=== PATIENT | male | born 1935 | race Caucasian/White ===

== ENCOUNTER 2017-08-02 08:43 | Emergency (ER) | payer MEDICARE, OTHER ==
[~2017-08-02] VITALS: Ht 167.6 cm; Wt 66.5 kg
[~2017-08-02 08:43] MED LIST: ASPI-664 PO; ATOR80TA75 PO; BENA5TAB2 PO; CARV3.1260 PO; FURO-110 PO; GABA300C16 PO; GLIP5TAB13 PO; METF1000 PO; TICA90TA PO
[2017-08-02 08:47] VITALS: Ht 167.6 cm; Wt 66.5 kg
[2017-08-02] MEDS ORDERED: ONDANSETRON 4 MG INJ IV STA (08:56)
[2017-08-02] MEDS ORDERED: morphine 2 MG INJ IV STA (08:56)
[2017-08-02] MEDS ORDERED: SOD CHLORIDE 0.9% 500 ML IV STA (08:56)
--- NOTE | 2017-08-02 09:46 | RADRPT ---
PROCEDURE: Ultrasound of the right lower extremity venous system. CLINICAL INDICATION: Right leg pain and swelling, deep venous thrombosis TECHNIQUE: Carmen scale with and without compression, color doppler, spectral doppler of the venous system of the right lower extremity was performed. Venous augmentation maneuvers were utilized. COMPARISON: No prior studies are available for comparison. FINDINGS: Common femoral vein: Patent. Femoral vein: Patent. Popliteal vein: Patent. Calf veins: Patent. No soft tissue abnormalities are identified. IMPRESSION: No evidence of a deep vein thrombosis within the right lower extremity. RPTAT: AADD .Chaparro Odell MD, MD Date Time Electronically viewed and signed by .Chaparro Odell MD, on 08/02/2017 09:46 .B/
[2017-08-02] MEDS ORDERED: ASPI81TA3 PO (09:59)
[2017-08-02] MEDS ORDERED: ATOR80TA75 PO (10:01)
[2017-08-02] MEDS ORDERED: TICA90TA PO (10:03)
[2017-08-02] MEDS ORDERED: BENA5TAB2 PO (10:03)
[2017-08-02] MEDS ORDERED: CARV6.25 PO (10:04)
[2017-08-02 10:07] LABS: BASOPHIL # 0.1 10^3/ul (0.0-0.1); BASOPHILS % 1.8 % (0.0-2.0); EOSINOPHILS # 0.4 10^3/ul (0.0-0.5); EOSINOPHILS % 6.3 % (0.0-7.0); HEMOGLOBIN 13.2 g/dl (14.0-18.0); LYMPHOCYTES # 1.5 10^3/ul (0.8-2.9); LYMPHOCYTES % 22.7 % (15.0-51.0); MEAN CORPUSCULAR HEMOGLOBIN 30.3 pg (29.0-33.0); MEAN CORPUSCULAR HGB CONC 33.8 g/dl (32.0-37.0); MEAN CORPUSCULAR VOLUME 89.7 fl (82.0-101.0); MEAN PLATELET VOLUME 10.3 fl (7.4-10.4); MONOCYTE # 0.7 10^3/ul (0.3-0.9); NEUTROPHIL # 3.9 10^3/ul (1.6-7.5); NEUTROPHILS % 57.9 % (39.0-77.0); PLATELET COUNT 189 10^3/UL (140-415); RED BLOOD COUNT 4.35 10^6/ul (4.70-6.10); RED CELL DISTRIBUTION WIDTH 15.7 % (11.5-14.5); WHITE BLOOD COUNT 6.7 10^3/ul (4.8-10.8)
[2017-08-02 10:24] LABS: INR 1.04; PROTIME 13.7 Sec (11.9-14.9); PT RATIO 1.1
[2017-08-02 10:25] LABS: PARTIAL THROMBOPLASTIN TIME 30.9 Sec (25.0-35.0)
[2017-08-02 10:28] LABS: ANION GAP 16 (8-16); BLOOD UREA NITROGEN 21 mg/dl (7-20); CALCIUM 9.2 mg/dl (8.4-10.2); CARBON DIOXIDE 24 mmol/L (21-31); CHLORIDE 105 mmol/L (97-110); CREATININE 0.97 mg/dl (0.61-1.24); GLUCOSE 160 mg/dl (70-220); POTASSIUM 3.6 mmol/L (3.5-5.1); SODIUM 141 mmol/L (135-144)
[2017-08-02 10:40] LABS: TROPONIN-I < 0.012 ng/ml (0.00-0.12)
[2017-08-02 10:40] LABS: ADD UMIC YES; UR ASCORBIC ACID NEGATIVE (NEGATIVE); UR BILIRUBIN (Dip) NEGATIVE (NEGATIVE); UR BLOOD (Dip) 1+ mg/dL (NEGATIVE); UR CLARITY CLEAR (CLEAR); UR COLOR YELLOW (YELLOW); UR GLUCOSE (Dip) NEGATIVE (NEGATIVE); UR KETONES (Dip) NEGATIVE (NEGATIVE); UR LEUKOCYTE ESTERASE (Dip) NEGATIVE Leu/ul (NEGATIVE); UR NITRITE (Dip) NEGATIVE (NEGATIVE); UR RBC 0 /HPF (0-5); UR SPECIFIC GRAVITY (Dip) 1.013 (1.003-1.030); UR TOTAL PROTEIN (Dip) NEGATIVE (NEGATIVE); UR UROBILINOGEN (Dip) NEGATIVE (NEGATIVE)
--- NOTE | 2017-08-02 10:40 | RADRPT ---
PROCEDURE: Right knee x-ray CLINICAL INDICATION: Syncope, fall, trauma TECHNIQUE: AP, lateral, and oblique views of the knee were obtained. COMPARISON: None FINDINGS: No acute fracture or dislocation is seen. There is normal mineralization. There is moderate narrowing of the medial compartment. There is no joint effusion. There is no significant soft tissue swelling. IMPRESSION: No evidence of an acute fracture. Moderate narrowing of the medial compartment. RPTAT: EE Physician Felicia Date Time Electronically viewed and signed by Physician Felicia on 08/02/2017 10:39 RA/
--- NOTE | 2017-08-02 10:40 | RADRPT ---
PROCEDURE: XR Chest. CLINICAL INDICATION: Syncope TECHNIQUE: An AP view of the chest was obtained. COMPARISON: CR CHEST 08/03/2016; CR CHEST 07/28/2016; CR CHEST 11/28/2015 FINDINGS: There is prominence of the interstitial markings. There are coarse reticular interstitial markings at the lung bases. No pleural effusion or pneumothorax is seen. The cardiomediastinal silhouette is within normal limits for size. Calcifications are seen within the aortic arch. The osseous structu res demonstrate senescent changes. IMPRESSION: 1. 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 No significant interval change. 2. Aortic atherosclerosis. RPTAT: HH .Carmela Mendiola MD, MD Date Time Electronically viewed and signed by .Carmela Mendiola MD, on 08/02/2017 10:40 .G/
[2017-08-02] MEDS ORDERED: IOHEXOL 100 ML ONE (10:48)
[2017-08-02] MEDS ORDERED: SOD CHLORIDE 0.9% 100 ML ONE (10:48)
[2017-08-02] MEDS ORDERED: IOHEXOL 350MG/ML 50 ML BTL ONE (10:53)
--- NOTE | 2017-08-02 11:10 | RADRPT ---
PROCEDURE: CT Brain without contrast. CLINICAL INDICATION: Syncope. TECHNIQUE: A CT of the brain was performed on multidetector high-resolution CT scanner utilizing a xial sections from the skull base through the vertex without contrast. The scan was reviewed in sof t tissue brain and high frequency resolution bone algorithm windows. Images were reviewed on a high -resolution PACS workstation. One or more the following does reduction techniques were utilized: Aut omated exposure control, adjustment of the mA/ or kV according to patient's size, or use of iterativ e reconstruction technique. The exam CTDI = 42.69 mGy and the DLP = 720.23 mGy-cm. DICOM images are available. COMPARISON: Brain CT 11/28/2015. FINDINGS: The ventricles and sulci are mildly to moderately prominent indicative of volume loss. There is no intracranial hemorrhage, mass effect or midline shift. No abnormal intra-axial or extra-axial fluid collections are seen. The santana/white matter differentiation is preserved. There are mild scattered foci of hypoattenuation in the white matter, which are nonspecific in etiol ogy but likely reflect chronic small vessel ischemic changes. There are mild intracranial vascular calcifications consistent with atherosclerosis. The visualized paranasal sinuses demonstrate mild sc attered mucosal thickening. The mastoid air cells are essentially clear. There is thinning of right lens indicative of prior lens replacement. IMPRESSION: 1. No acute intracranial hemorrhage, transcortical infarction or mass effect. 2. Mild intracranial atherosclerosis and chronic small vessel ischemic changes. 3. Mild to moderate generalized cerebral volume loss. RPTAT: HH .Lissy Anthony MD, MD Date Time Electronically viewed and signed by .Lissy Anthony MD, MD on 08/02/2017 11:10 .N/
--- NOTE | 2017-08-02 11:28 | RADRPT ---
PROCEDURE: CT scan facial bones CLINICAL INDICATION: Trauma. Facial injury. Pain. TECHNIQUE: CT scan of the face was performed on the a high-resolution multidetector CT scanner wit h multiple contiguous axial images obtained through the face. Coronal and sagittal reformatted imag es were obtained from the axial source images. One or more the following does reduction techniques w ere utilized: Automated exposure control, adjustment of the mA/ or kV according to patient's size, o r use of iterative reconstruction technique. Exam CTDI = 29.56 mGy and the DLP = 595.85 mGy-cm. DICOM images are available. COMPARISON: None available. FINDINGS: No acute fracture or dislocation is seen. No significant soft tissue swelling is noted. There is t hinning of right lens indicative of prior lens replacement. The orbital globes are otherwise unremar kable. Leftward nasal septal deviation is noted. Paranasal sinuses demonstrate mild scattered mucos al thickening. Multiple missing teeth are noted. IMPRESSION: 1. No acute facial fracture or dislocation. 2. Leftward nasal septal deviation. RPTAT: HH .Lissy Anthony MD, MD Date Time Electronically viewed and signed by .Lissy Anthony MD, MD on 08/02/2017 11:28 .N/
--- NOTE | 2017-08-02 11:28 | RADRPT ---
PROCEDURE: CTA Chest and pulmonary angiogram. CLINICAL INDICATION: Chest pain and shortness of breath. TECHNIQUE: CT scan of the chest and CT pulmonary angiogram was performed on a multidetector high-r esolution CT scanner. High-resolution thin slice coronal and sagittal imaging was obtained from the axial source images. 3-D volumetric rendered post processing was not performed. The patient was ex amined following the uncomplicated intravenous administration of 110 cc of of 03/29/1949. The images were reviewed on a PACS workstation. The total exam CTDI equals 45 mGy, and the total exam DLP equa ls 600.5 mGy-cm. One or more of the following dose reduction techniques were used: Automated exposure control. Adjustment of the mA and/or kV according to patient size. Use of iterative reconstruction technique. DICOM images are available. COMPARISON: No priors for comparison FINDINGS: CT chest: The trachea is midline. The thyroid gland is unremarkable. No significant axillary lymphadenopathy. There is no significant mediastinal or hilar lymphadenopathy. The aorta demonstrates mild atherosclerotic calcifications. No evidence of aneurysmal dilatation or dissection. Pulmonary arterial trunk is normal size. There is no abnormal filling defects in the gio n pulmonary artery and its segmental branches. The heart size is enlarged. There is no significant p ericardial effusion. The lungs are clear. No focal air space disease/consolidation. Pleural effusions. Airways are patent . There is bilateral lower lobe reticular peripheral interstitial opacities. There is mild bilateral bronchiectasis. The visualized upper abdominal organs appears to within normal limits. The visualized osseous structures appear to be within normal limits. IMPRESSION: 1. No evidence of acute pulmonary emboli. No evidence of aortic aneurysm or dissection. 2. Cardiomegaly. 3. No focal air space disease/consolidation. No pleural effusions. 4. Bilateral bronchiectasis and bilateral lower lobe reticular peripheral interstitial opacities sug gestive of mild chronic interstitial lung disease. RPTAT: AAPP Physician Pam Date Time Electronically viewed and signed by Physician Pam on 08/02/2017 11:28 CINDI/
--- NOTE | 2017-08-02 11:34 | RADRPT ---
PROCEDURE: CT cervical spine without contrast CLINICAL INDICATION: Trauma. Neck pain. TECHNIQUE: CT scan of the cervical spine was performed on a [facility] No IV contrast was administered. Coronal and sagittal reformatted images were obtained from th e axial source images. Images were reviewed on a high-resolution PACS workstation. One or more the f ollowing does reduction techniques were utilized: Automated exposure control, adjustment of the mA/ or kV according to patient's size, or use of iterative reconstruction technique. Exam CTDI = 19th mG y and the DLP = 369.05 mGy-cm. DICOM images are available. COMPARISON: None available. FINDINGS: There is straightening of the alignment of the cervical spine with loss of the normal cervical lordo sis. Alignment remains intact. No acute fracture or dislocation is seen. The vertebral body heigh ts are preserved. No mass, hematoma, or other soft tissue abnormality is seen. Calcification of the ligamentum nuchae is noted at C5-C6 level. There are multilevel mild to moderate degenerative changes of the cervical spine, manifested by oste ophytosis and disc height narrowing, most prominent at C5-C6. Uncovertebral osteophytes and facet ar thropathy result in multilevel foraminal stenosis: at C3-C4 moderate to severe on the right and mode rate on the left, at C4-C5 moderate to severe bilaterally, at C5-C6 moderate to severe on the right and severe on the left, and at C6-C7 mild bilaterally. Posterior disc osteophyte complexes contribut e to moderate spinal canal stenosis at C5-C6 and mild spinal canal narrowing at C3-C4, C4-C5 and C6- C7. IMPRESSION: 1. Straightening of normal cervical lordosis. 2. No acute fracture or traumatic subluxation. 3. Multilevel mild to moderate degenerative changes of the cervical spine, most prominent at C5-C6. 4. Posterior disc osteophyte complexes contribute to moderate spinal canal stenosis at C5-C6 and mi ld spinal canal narrowing at C3-C4, C4-C5 and C6-C7. 5. Multilevel moderate to severe foraminal stenosis as outlined in details in findings. RPTAT: HH .Farmil Anthony MD, MD Date Time Electronically viewed and signed by .Lissy Anthony MD, MD on 08/02/2017 11:34 .N/
[2017-08-02] MEDS ORDERED: ACET500C5 PO (13:16)
--- NOTE | 2017-08-02 13:32 | ERD ---
ER Documentation Chief Complaint Chief Complaint right knee pain and nasal pain s/p fall yesterday, on brilinta, HPI This is an 82-year-old gentleman who presents to the emergency room complaining of knee pain, facial pain and chest wall pain status post fall yesterday. Family reports that the patient was walking, he occasionally is unsteady on his feet. He states that his knees were wobbling and he collapsed to the ground. There is no prodrome of headache or chest pain or shortness of breath. Status post a fall the patient did fall onto his face. He also hit his chest. He is describing facial pain that is 6 out of 10 and throbbing with lip abrasions and contusions. He also describes anterior chest pain that is slightly pleuritic and worse with movement. He also describes right knee pain that is slightly worse with movement. No fevers chills or cough. No neck pain. ROS All systems reviewed and are negative except as per history of present illness. Medications Home Meds Active Scripts Acetaminophen* (Tylophen*) 500 Mg Capsule, 2 CAP PO Q8H Y for PAIN AND OR ELEVATED TEMP, #20 CAP Prov:JAQUI MONTILLA MD 08/02/17 Furosemide* (Lasix*) 20 Mg Tablet, 20 MG PO BID, #90 TAB 3 Refills Prov:RUBÉN ANTONIO 08/04/16 Reported Medications Carvedilol* (Coreg*) 6.25 Mg Tablet, 6.25 MG PO BID, #60 TAB 08/02/17 Ticagrelor* (Brilinta*) 90 Mg Tablet, 90 MG PO Q12, TAB 08/02/17 Benazepril Hcl* (Benazepril Hcl*) 5 Mg Tablet, 2.5 MG PO DAILY, #30 TAB 08/02/17 Atorvastatin* (Atorvastatin*) 80 Mg Tablet, 80 MG PO QHS, #30 TAB 08/02/17 Aspirin* (Aspirin* Chew) 81 Mg Tab.chew, 81 MG PO DAILY, TAB.CHEW 08/02/17 Gabapentin* (Gabapentin*) 300 Mg Capsule, 300 MG PO BID, #270 11/28/15 Metformin Hcl* (Metformin Hcl*) 1,000 Mg Tablet, 1000 MG PO BID, #180 11/28/15 Discontinued Reported Medications Glipizide* (Glipizide*) 5 Mg Tablet, 5 MG PO DAILY, #90 11/28/15 Discontinued Scripts Atorvastatin* (Atorvastatin*) 80 Mg Tablet, 80 MG PO DAILY@21 for 30 Days, TAB 1 Refill Prov:ZEENAT RESENDIZ MD 07/30/16 Ticagrelor* (Brilinta*) 90 Mg Tablet, 90 MG PO BID for 30 Days, TAB 9 Refills Prov:ZEENAT RESENDIZ MD 07/30/16 Carvedilol* (Carvedilol*) 3.125 Mg Tablet, 3.125 MG PO BID for 30 Days, TAB 1 Refill Prov:ZEENAT RESENDIZ MD 07/30/16 Benazepril Hcl* (Benazepril Hcl*) 5 Mg Tablet, 2.5 MG PO DAILY for 30 Days, TAB 1 Refill Prov:ZEENAT RESENDIZ MD 07/30/16 Aspirin* (Aspirin* EC) 81 Mg Tablet.dr, 81 MG PO DAILY for 90 Days, 3 Refills Prov:ZEENAT RESENDIZ MD 07/30/16 Allergies Allergies: Coded Allergies: No Known Allergy (Unverified , 08/03/16) PMhx/Soc History of Surgery: No Anesthesia Reaction: No Hx Neurological Disorder: Yes (neuropathy) Hx Respiratory Disorders: Yes (chf) Hx Cardiac Disorders: Yes (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, HTN, CAD, DMii) Hx Psychiatric Problems: No Hx Miscellaneous Medical Probl: No Hx Alcohol Use: No Hx Substance Use: No Hx Tobacco Use: No Smoking Status: Former smoker FmHx Family History: No diabetes Physical Exam Vitals Vital Signs Date Time Temp Pulse Resp B/P Pulse Ox O2 Delivery O2 Flow Rate FiO2 08/02/17 08:47 97.9 68 18 117/92 96 Physical Exam Airway is intact Bilateral breath sounds Strong distal pulses No obvious deficits General: Well developed, well nourished, no acute distress Head: Normocephalic, atraumatic Eyes: Pupils equally reactive, EOM intact ENT: Moist mucous membranes, mild contusions to the upper and lower lips without evidence of dental injury Neck: Supple, no lymphadenopathy, No midline tenderness, deformities, step-offs to the cervical spine, full active and passive range of motion without midline pain. Respiratory: Lungs clear bilaterally, no distress, no chest wall tenderness, no crepitus Cardiovascular: RRR, no murmurs, rubs, or gallops Abdominal: Soft, non-tender, non-distended, no peritoneal signs, pelvis is stable : Deferred MSK: Mild right knee contusion with full active and passive range of motion without ligamentous or bony abnormality. No edema, no unilateral swelling, 5/5 strength, no midline tenderness deformities or step-offs to the thoracolumbar spine Neurologic: Alert and oriented, moving all extremities, normal speech, no focal weakness, no cerebellar signs Skin: No ecchymoses or bruising to the chest or abdomen Psych: Normal mood Result Diagram: 08/02/17 0930 08/02/17 0930 Results 24 hrs Laboratory Tests Test 08/02/17 09:30 08/02/17 10:17 White Blood Count 6.710^3/ul Red Blood Count 4.3510^6/ul Hemoglobin 13.2g/dl Hematocrit 39.0% Mean Corpuscular Volume 89.7fl Mean Corpuscular Hemoglobin 30.3pg Mean Corpuscular Hemoglobin Concent 33.8g/dl Red Cell Distribution Width 15.7% Platelet Count 51412^3/UL Mean Platelet Volume 10.3fl Neutrophils % 57.9% Lymphocytes % 22.7% Monocytes % 11.0% Eosinophils % 6.3% Basophils % 1.8% Nucleated Red Blood Cells % 0.0/100WBC Neutrophils # 3.910^3/ul Lymphocytes # 1.510^3/ul Monocytes # 0.710^3/ul Eosinophils # 0.410^3/ul Basophils # 0.110^3/ul Nucleated Red Blood Cells # 0.010^3/ul Prothrombin Time 13.7Sec Prothrombin Time Ratio 1.1 INR International Normalized Ratio 1.04 Activated Partial Thromboplast Time 30.9Sec Sodium Level 141mmol/L Potassium Level 3.6mmol/L Chloride Level 105mmol/L Carbon Dioxide Level 24mmol/L Anion Gap 16 Blood Urea Nitrogen 21mg/dl Creatinine 0.97mg/dl Glucose Level 160mg/dl Calcium Level 9.2mg/dl Troponin I < 0.012ng/ml Urine Color YELLOW Urine Clarity CLEAR Urine pH 5.0 Urine Specific [place] 1.013 Urine Ketones NEGATIVEmg/dL Urine Nitrite NEGATIVEmg/dL Urine Bilirubin NEGATIVEmg/dL Urine Urobilinogen NEGATIVEmg/dL Urine Leukocyte Esterase NEGATIVELeu/ul Urine Microscopic RBC 0/HPF Urine Microscopic WBC 1/HPF Urine Hemoglobin 1+mg/dL Urine Glucose NEGATIVEmg/dL Urine Total Protein NEGATIVEmg/dl Current Medications Medications (Trade) Dose Ordered Sig/Anna Route PRN Reason Start Time Stop Time Status Last Admin Dose Admin Sodium Chloride (NS) 500 ml @ 500 mls/hr Q1H STAT IV 08/02/17 08:56 08/02/17 09:55 DC 08/02/17 10:46 Morphine Sulfate (morphine) 2 mg ONCE STAT IV 08/02/17 08:56 08/02/17 08:59 DC Ondansetron HCl (Zofran Inj) 4 mg ONCE STAT IV 08/02/17 08:56 08/02/17 08:59 DC 08/02/17 10:46 IV Flush 10 ml 10 ml STK-MED ONCE .ROUTE 08/02/17 10:48 08/02/17 10:49 DC 08/02/17 11:21 Sodium Chloride 100 ml @ ud STK-MED ONCE .ROUTE 08/02/17 10:48 08/02/17 10:49 DC 08/02/17 11:21 Iohexol (Omnipaque) 100 ml @ ud STK-MED ONCE .ROUTE 08/02/17 10:48 08/02/17 10:49 DC 08/02/17 11:21 Iohexol (Omnipaque 350mg/ ml) 50 ml STK-MED ONCE .ROUTE 08/02/17 10:53 08/02/17 10:54 DC 08/02/17 11:21 Procedures/MDM EKG, MONITORS, & DIAGNOSTIC IMAGING: EKG: I reviewed and interpreted a 12-lead EKG. Rhythm: Normal sinus rhythm Ectopy: None Intervals: No abnormalities ST segments: No elevations or depressions T waves: No contiguous inversions Chest x-ray: I reviewed and interpreted a 1 view of the chest Mediastinum: No enlargement Cardiac silhouette: No cardiomegaly Airspace: Clear lung massey bilaterally without evidence of pneumothorax Bones: No evidence of fracture X-ray right knee: I reviewed and interpreted multiple views of the x-ray Bones: No evidence of acute fracture dislocation or subluxation Soft tissue: No evidence of foreign body CT brain: No evidence of acute intracranial process per radiologist CT cervical spine: No evidence of acute fracture dislocation or subluxation per radiologist Lower extremity duplex: No evidence of DVT CTA chest IMPRESSION: 1. No evidence of acute pulmonary emboli. No evidence of aortic aneurysm or dissection. 2. Cardiomegaly. 3. No focal air space disease/consolidation. No pleural effusions. 4. Bilateral bronchiectasis and bilateral lower lobe reticular peripheral interstitial opacities suggestive of mild chronic interstitial lung disease. RPTAT: AAPP LAB INTERPRETATION: No anemia, negative troponin MEDICAL DECISION MAKING: The patient presents with what appears to be a mechanical trip and fall though he states his legs gave out. He did not lose consciousness. He has evidence of facial trauma. This occurred yesterday. The patient will benefit from CT imaging of the head, facial bones, cervical spine. He also has evidence of a right knee contusion. He is describing chest pain that I believe is most consistent with chest wall contusion. He clearly describes the pain after the fall not before the fall. He has reproducible symptoms. The patient was noted to have some small swelling around the right ankle. I cannot rule out DVT and pulmonary embolism. CTPA indicated because of this. ER COURSE: Patient's laboratory testing and diagnostic imaging are otherwise unrevealing. I did have a prolonged conversation with the patient and family members and recommended inpatient hospitalization. However the family feels that they can appropriately manage the patient at home and this is something that has occurred in the past. I discussed that the chest pain is most likely musculoskeletal but cannot really ACS. They feel comfortable that this occurred after the fall and it is reproducible. I believe this is reasonable. The family states that they are able to care for the patient's activities of daily living. The patient is eager to go home. At this point I feel discharge would be appropriate. His head injury precautions discussed with the patient. Return precautions discussed with the family. I kept the patient and/or family informed of laboratory and diagnostic imaging results throughout the emergency room course. DISPOSITION PLAN: We discussed follow up with the patient's primary care doctor within 24 to 48 hours as needed. We also discussed return to the emergency room for worsening symptoms or worsening condition. Outpatient referral: [None required] Discharge Medications: Tylenol Departure Diagnosis: Primary Impression: Contusion of face Encounter type: initial encounter Qualified Code: S00.83XA - Contusion of face, initial encounter Additional Impressions: Fall from ground level Chest wall contusion Encounter type: initial encounter Laterality: unspecified laterality Qualified Code: S20.219A - Contusion of chest wall, unspecified laterality, initial encounter Condition: Stable Patient Instructions: Chest Wall Contusion, Facial Contusion, No Wakeup Referrals: [facility] Usted se julian hecho un examen mdico de control que le indica que no est en nabor condicin que requiera tratamiento urgente en el Departamento de Emergencia. Un estudio ms profundo y el tratamiento de cintron condicin pueden esperar sin ningn riesgo hasta que usted sea atendida/o en el consultorio de cintron mdico o nabor cl celeste. Es responsabilidad suya arreglar nabor cheri para el seguimiento del betty. MANEJO DE CONDICIONES NO URGENTES EN EL FUTURO 1) Si usted tiene un mdico de atencin primaria: Usted debera llamar a cintron mdico de atencin primaria antes de venir al departamento de emergencia. Despus de las horas de consultorio, cintron doctor o cintron asociado/a est disponible por telfono. El mdico o enfermero de talib en el servicio telefnico puede asesorarle por dudley medio para atender el problema, o betty contrario se puede programar nabor cheri. 2) Si usted no tiene un mdico de atencin primaria: Llame al mdico o clnica de referencia que aparece abajo lucio las horas de consultorio para hacer nabor cheri para que le vean. CLINICAS: [facility] [phone] [facility] [phone] [facility] [phone] [facility] [phone] [place] [phone] [facility] [phone] [facility]. [facility] () Skyler se julian hecho un examen mdico de control que le indica que no est en nabor condicin que requiera tratamiento urgente en el Departamento de Emergencia. Un estudio ms profundo y el tratamiento de cintron condicin pueden esperar sin ningn riesgo hasta que usted sea atendida/o en el consultorio de cintron mdico o nabor cl celeste. Es responsabilidad suya arreglar nabor cheri para el seguimiento del betty. MANEJO DE CONDICIONES NO URGENTES EN EL FUTURO 1) Si usted tiene un mdico de atencin primaria: Skyler debera llamar a cintron mdico de atencin primaria antes de venir al departamento de emergencia. Despus de las horas de consultorio, cintron doctor o cintron asociado/a est disponible por telfono. El mdico o enfermero de talib en el servicio telefnico puede asesorarle por dudley medio para atender el problema, o betty contrario se puede programar nabor cheri. 2) Si usted no tiene un mdico de atencin primaria: Llame al mdico o condado institucions de referencia que aparece abajo lucio las horas de consultorio para hacer nabor cheri para que le vean. SI USTED NO PUEDE PAGAR PARA SIRISHA UN MEDICO puede ir a: [facility] [phone] [place] [address] [facility] [address] [place] [address] [facility] [address] [place] [address] [address] [facility] [address] [place] [address] Additional Instructions: Llame al doctor nombrado abajo (Referral Sources) MAANA y nany nabor CHERI PARA DENTRO DE NABOR SEMANA. Dgale a la secretaria que nosotros le instruimos hacer esta cheri.Avise o llame si cintron condicin se empeora antes de la cheri. JAQUI MONTILLA MD Aug 02, 2017 13:32
[2017-08-02 14:45] VITALS: BP 164/72; PULSE 65; RESP 17; TEMP 98.2
== END 2017-08-02 14:46 | disposition home or self-care (01) ==
LOC: E/R 08:43
DX: S00.83XA Contusion of other part of head, initial encounter (principal); S20.219A Contusion of unspecified front wall of thorax, initial encounter; I50.9 Heart failure, unspecified; I10 Essential (primary) hypertension; I25.10 Atherosclerotic heart disease of native coronary artery without angina pectoris; W18.39XA Other fall on same level, initial encounter; Y92.9 Unspecified place or not applicable; Z87.891 Personal history of nicotine dependence; Z98.61 Coronary angioplasty status; Z79.84 Long term (current) use of oral hypoglycemic drugs; Z79.82 Long term (current) use of aspirin
CPT/HCPCS: 36415; 70450; 70486; 71010; 71275; 72125; 73562; 80048; 81001; 84484; 85025; 85610; 85730; 93005; 93971; 96374; 99285; J2405; J7040; Q9967; J2270

== ENCOUNTER 2018-11-04 11:10 | Emergency (ER) | payer MEDICARE, OTHER ==
[~2018-11-04] VITALS: Ht 167.6 cm; Wt 78.0 kg
[~2018-11-04 11:10] MED LIST changes: +ACET500C5 PO; -ASPI-664 PO; +ASPI-903 PO; +ATOR-2 PO; -ATOR80TA75 PO; -BENA5TAB2 PO; +BENA5TAB33 PO; -CARV3.1260 PO; +CARV6.25 PO; -GLIP5TAB13 PO; -METF1000 PO; +METF100010 PO
[2018-11-04 11:12] VITALS: BP 186/86; PULSE 66; RESP 20; Ht 167.6 cm; Wt 78.0 kg
--- NOTE | 2018-11-04 13:34 | ERD ---
ER Documentation Chief Complaint Chief Complaint lower back and left shoulder pain after a trip and fall HPI The patient is a 83-year-old male, presenting to the ER because of lower back pa in and left shoulder pain after he had a mechanical fall yesterday. He denies head trauma, denies headache, neck pain, chest pain, dyspnea, abdominal pain, vomiting. He does not smoke nor drink Past medical history: Hypertension, dyslipidemia, diabetes mellitus, history of CHF, CAD Past surgical history: Stent PCI ROS All systems reviewed and are negative except as per history of present illness. Medications Home Meds Active Scripts Acetaminophen* (Tylenol*) 325 Mg Tablet, 2 TAB PO Q6 PRN for PAIN AND OR ELEVATED TEMP, #20 TAB Prov:MARINA EPPS MD 11/04/18 Reported Medications Cyanocobalamin (Vitamin B-12) (Vitamin B-12) 1,000 Mcg Tab.subl, 1000 MCG SL DAILY 11/04/18 Atorvastatin* (Atorvastatin*) 80 Mg Tablet, 80 MG PO QHS, #30 TAB 11/04/18 Metformin Hcl* (Metformin Hcl*) 1,000 Mg Tablet, 1000 MG PO WITH BREAKFAST DINNE, #60 TAB 11/04/18 Carvedilol* (Carvedilol*) 6.25 Mg Tablet, 6.25 MG PO BID, #60 TAB 11/04/18 Gabapentin* (Gabapentin*) 300 Mg Capsule, 300 MG PO BID, #60 CAP 11/04/18 Benazepril Hcl* (Benazepril Hcl*) 5 Mg Tablet, 5 MG PO DAILY, #30 TAB 11/04/18 Aspirin* (Aspirin* EC) 81 Mg Tablet.dr, 81 MG PO DAILY, TAB 11/04/18 Discontinued Reported Medications Carvedilol* (Coreg*) 6.25 Mg Tablet, 6.25 MG PO BID, #60 TAB 08/02/17 Ticagrelor* (Brilinta*) 90 Mg Tablet, 90 MG PO Q12, TAB 08/02/17 Benazepril Hcl* (Benazepril Hcl*) 5 Mg Tablet, 2.5 MG PO DAILY, #30 TAB 08/02/17 Atorvastatin* (Atorvastatin*) 80 Mg Tablet, 80 MG PO QHS, #30 TAB 08/02/17 Aspirin* (Aspirin* Chew) 81 Mg Tab.chew, 81 MG PO DAILY, TAB.CHEW 08/02/17 Gabapentin* (Gabapentin*) 300 Mg Capsule, 300 MG PO BID, #270 11/28/15 Metformin Hcl* (Metformin Hcl*) 1,000 Mg Tablet, 1000 MG PO BID, #180 11/28/15 Discontinued Scripts Acetaminophen* (Tylophen*) 500 Mg Capsule, 2 CAP PO Q8H PRN for PAIN AND OR ELEVATED TEMP, #20 CAP Prov:JAQUI MONTILLA MD 08/02/17 Furosemide* (Lasix*) 20 Mg Tablet, 20 MG PO BID, #90 TAB 3 Refills Prov:RUBÉN ANTONIO 08/04/16 Allergies Allergies: Coded Allergies: No Known Allergy (Unverified , 11/04/18) PMhx/Soc History of Surgery: No Anesthesia Reaction: No Hx Neurological Disorder: Yes (neuropathy) Hx Respiratory Disorders: Yes (chf) Hx Cardiac Disorders: Yes (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, HTN, CAD, DMii) Hx Psychiatric Problems: No Hx Miscellaneous Medical Probl: No Hx Alcohol Use: No Hx Substance Use: No Hx Tobacco Use: No Physical Exam Vitals Vital Signs Date Temp Pulse Resp B/P (MAP) Pulse Ox O2 O2 Flow FiO2 Time Delivery Rate 11/04/18 97.6 66 20 186/86 98 11:12 (119) Physical Exam Const: No acute distress. Head: Atraumatic. Eyes: Normal Conjunctiva. ENT: Normal External Ears, Nose and Mouth. Neck: Full range of motion. No meningismus. Resp: Clear to auscultation bilaterally. Cardio: Regular rate and rhythm. Abd: Soft, non distended, normal bowel sounds, non tender. Skin: No petechiae or rashes. Back: No midline or flank tenderness. Ext: Left shoulder with vague tenderness, full range of motion, no erythema/crepitus Neur: Awake and alert. No focal deficit Psych: Normal Mood and Affect. Results 24 hrs Current Medications Medications Dose Sig/Anna Start Time Status Last (Trade) Ordered Route PRN Stop Time Admin Dose Reason Admin 650 mg ONCE ONCE 11/04/18 DC 11/04/18 Acetaminophen PO 15:30 15:38 (Tylenol 11/04/18 15:31 Tab) Procedures/[place] [id number] Radiology Main Line: [phone] DIAGNOSTIC IMAGING REPORT Patient: TOBI AC : 1935 Age: 83 Sex: M MR #: [id number] DOS: 11/04/18 1340 Ordering MD: MARINA EPPS MD Location: E/R Room/Bed: PROCEDURE: XR Lumbar Spine. CLINICAL INDICATION: pain TECHNIQUE: AP, lateral and cone-down lateral view of the lumbar spine were obtained. COMPARISON: CT 08/02/2017 FINDINGS: Minimal anterior wedging of superior endplate of L1 is age indeterminate but favored to be chronic. Otherwise no evidence of acute fracture or loss of vertebral body height. Normal lordosis without vertebral body subluxation. Moderate disc space narrowing and facet arthropathy L4-L5 and L5-S1. Surgical clips over the pelvis. IMPRESSION: Minimal anterior wedging of the superior endplate of L1 is age indeterminate but favored to be chronic. Correlate for focal tenderness in that area. Otherwise no evidence of acute fracture. Moderate spondylosis from L4-S1. RPTAT:AAJJ Physician Geovany Date Time Electronically viewed and signed by Physician Geovany on 11/04/2018 14:42 RF/ CC: MARINA EPPS MD [id number] [place] [id number] Radiology Main Line: [phone] DIAGNOSTIC IMAGING REPORT Patient: TOBI AC : 1935 Age: 83 Sex: M MR #: [id number] DOS: 11/04/18 1340 Ordering MD: MARINA EPPS MD Location: E/R Room/Bed: PROCEDURE: XR left shoulder. CLINICAL INDICATION: pain TECHNIQUE: 3 views of the left shoulder performed COMPARISON: None. FINDINGS: No acute fracture or dislocation. Moderate arthrosis of the AC joint with mild lateral downsloping acromion. Osteopenia. Soft tissues appear within normal limits. IMPRESSION: No fracture or dislocation. 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 RPTAT: HRGF Rodolfo Adams Physician Date Time Electronically viewed and signed by Rodolfo Adams Physician on 11/04/2018 14:39 RF/ CC: MARINA EPPS MD [id number] MEDICAL MAKING DECISION: The patient is a 83-year-old male, presenting with acute left shoulder pain, acute back pain after mechanical fall, was treated with Tylenol 650 mg p.o. for pain with good response, is stable for outpatient follow-up The differential diagnoses considered include but are not limited to fracture, contusion, sprain, internal derangement Departure Diagnosis: Primary Impression: Back pain Additional Impression: Shoulder pain, left Condition: Good Comments He was discharged with Tylenol I discussed the findings with the patient. I advised the patient to follow-up with the primary physician in about 2-3 days, sooner if needed and return if any concern, advised that he may need MRI for further evaluation if the pain is persistent. Disclaimer: Inadvertent spelling and grammatical errors are likely due to EHR/dictation software use and do not reflect on the overall quality of patient care. Also, please note that the electronic time recorded on this note does not necessarily reflect the actual time of the patient encounter. MARINA EPPS MD Nov 04, 2018 13:34
[2018-11-04] MEDS ORDERED: ASPI-817 PO (15:15)
[2018-11-04] MEDS ORDERED: BENA5TAB33 PO (15:16)
[2018-11-04] MEDS ORDERED: GABA300C16 PO (15:16)
[2018-11-04] MEDS ORDERED: CARV6.2579 PO (15:17)
[2018-11-04] MEDS ORDERED: METF100010 PO (15:17)
[2018-11-04] MEDS ORDERED: ATOR-2 PO (15:17)
[2018-11-04] MEDS ORDERED: [UNRECOGNIZED DRUG - CODE] SL (15:18)
[2018-11-04] MEDS ORDERED: ACET325T33 PO (15:21)
[2018-11-04] MEDS ORDERED: ACETAMINOPHEN 325 MG TAB PO ONE (15:30)
== END 2018-11-04 15:55 | disposition home or self-care (01) ==
LOC: E/R 11:10
DX: M54.5 Low back pain (principal); M25.512 Pain in left shoulder; I10 Essential (primary) hypertension; I25.10 Atherosclerotic heart disease of native coronary artery without angina pectoris; E11.9 Type 2 diabetes mellitus without complications; I50.9 Heart failure, unspecified; Z79.84 Long term (current) use of oral hypoglycemic drugs; Z79.82 Long term (current) use of aspirin
CPT/HCPCS: 72100; 73030

== ENCOUNTER 2018-11-10 15:38 | Emergency (ER) | payer MEDICARE, OTHER ==
[~2018-11-10] VITALS: Ht 165.1 cm; Wt 70.0 kg
[~2018-11-10 15:38] MED LIST changes: +ACET325T33 PO; -ACET500C5 PO; +ASPI-817 PO; -ASPI-903 PO; -CARV6.25 PO; +CARV6.2579 PO; -FURO-110 PO; -TICA90TA PO; +[UNRECOGNIZED DRUG - CODE] SL
[2018-11-10 16:15] VITALS: Ht 165.1 cm; Wt 70.0 kg
[2018-11-10] MEDS ORDERED: SOD CHLORIDE 0.9% 500 ML IV STA (17:07)
[2018-11-10] MEDS ORDERED: morphine 4 MG/ML VIAL IV STA (17:07)
[2018-11-10] MEDS ORDERED: ONDANSETRON 4 MG INJ IV STA (17:07)
--- NOTE | 2018-11-10 17:18 | ERD ---
ER Documentation Chief Complaint Chief Complaint CHRONIC LOW BACK PAIN, FAMILY REPORT FALL LAST WEEK HPI This is an 83-year-old male Welsh-speaking who presents to the emergency department complaint of lower back pain . 1 week prior to arrival the patient had a ground-level fall landing on his buttocks on a tile floor surface. The patient was seen and evaluated at the onset of his symptoms at [facility] and had radiographic imaging of his lumbar spine that showed no evidence of fracture. He was discharged home on Tylenol but indicates that the pain has been persistent. The pain is a dull achy sensation. It is exacerbated when he stands up or sits down. He has no changes in his bladder or bowel frequency. He has had no hematuria. He said no fevers or shaking or chills. He denies any saddle anesthesia. He denies any shortness of breath at rest or exertion ROS All systems reviewed and are negative except as per history of present illness. Medications Home Meds Reported Medications Cyanocobalamin (Vitamin B-12) (Vitamin B-12) 1,000 Mcg Tab.subl, 1000 MCG SL DAILY 11/04/18 Atorvastatin* (Atorvastatin*) 80 Mg Tablet, 80 MG PO QHS, #30 TAB 11/04/18 Metformin Hcl* (Metformin Hcl*) 1,000 Mg Tablet, 1000 MG PO WITH BREAKFAST DINNE, #60 TAB 11/04/18 Carvedilol* (Carvedilol*) 6.25 Mg Tablet, 6.25 MG PO BID, #60 TAB 11/04/18 Gabapentin* (Gabapentin*) 300 Mg Capsule, 300 MG PO BID, #60 CAP 11/04/18 Benazepril Hcl* (Benazepril Hcl*) 5 Mg Tablet, 5 MG PO DAILY, #30 TAB 11/04/18 Aspirin* (Aspirin* EC) 81 Mg Tablet.dr, 81 MG PO DAILY, TAB 11/04/18 Discontinued Reported Medications Carvedilol* (Coreg*) 6.25 Mg Tablet, 6.25 MG PO BID, #60 TAB 08/02/17 Ticagrelor* (Brilinta*) 90 Mg Tablet, 90 MG PO Q12, TAB 08/02/17 Benazepril Hcl* (Benazepril Hcl*) 5 Mg Tablet, 2.5 MG PO DAILY, #30 TAB 08/02/17 Atorvastatin* (Atorvastatin*) 80 Mg Tablet, 80 MG PO QHS, #30 TAB 08/02/17 Aspirin* (Aspirin* Chew) 81 Mg Tab.chew, 81 MG PO DAILY, TAB.CHEW 08/02/17 Gabapentin* (Gabapentin*) 300 Mg Capsule, 300 MG PO BID, #270 11/28/15 Metformin Hcl* (Metformin Hcl*) 1,000 Mg Tablet, 1000 MG PO BID, #180 11/28/15 Discontinued Scripts Acetaminophen* (Tylenol*) 325 Mg Tablet, 2 TAB PO Q6 PRN for PAIN AND OR ELEVATED TEMP, #20 TAB Prov:MARINA EPPS MD 11/04/18 Acetaminophen* (Tylophen*) 500 Mg Capsule, 2 CAP PO Q8H PRN for PAIN AND OR VANDANA VATED TEMP, #20 CAP Prov:JAQUI MONTILLA MD 08/02/17 Furosemide* (Lasix*) 20 Mg Tablet, 20 MG PO BID, #90 TAB 3 Refills Prov:RUBÉN ANTONIO 08/04/16 Allergies Allergies: Coded Allergies: No Known Allergy (Unverified , 11/10/18) PMhx/Soc History of Surgery: No Anesthesia Reaction: No Hx Neurological Disorder: Yes (neuropathy) Hx Respiratory Disorders: Yes (chf) Hx Cardiac Disorders: Yes (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, HTN, CAD) Hx Psychiatric Problems: No Hx Miscellaneous Medical Probl: Yes (DM) Hx Alcohol Use: No Hx Substance Use: No Hx Tobacco Use: No Physical Exam Vitals Vital Signs Date Temp Pulse Resp B/P (MAP) Pulse Ox O2 O2 Flow FiO2 Time Delivery Rate 11/10/18 98.3 78 16 140/82 95 Room Air 18:40 (101) 11/10/18 98.3 70 18 142/81 96 Room Air 16:40 (101) 11/10/18 99.8 59 18 149/72 93 16:15 (97) Physical Exam Constitutional:Well-developed. Well-nourished. HEENT:Normocephalic. Atraumatic.Pupils were equal round reactive to light. Moist mucous membranes.No tonsillar exudates. Neck: No nuchal rigidity. No lymphadenopathy. No posterior cervical spine tenderness or step-offs. Respiratory: Not using accessory muscles of respiration.Lungs were clear to auscultation bilaterally. No rhonchi. No rales. No wheezing. Cardiovascular: Regular rate regular rhythm.No murmurs. No rubs were appreciated.S1, S2 normal. Distal pulses are palpable 2+ bilaterally. GI: Abdomen was soft. Nontender. Non Distended. No pulsatile abdominal masses or bruits. No rebound. No guarding. Bowel sounds were present and normal. Muscle skeletal: Full range of motion of both the upper and lower extremities bilaterally.Normal muscle tone.No assymetrical calf tenderness or swelling. Lower extremities are equal length and symmetrical no internal or external rotation. Tenderness over L4-L5 with no step-offs. Tenderness with no step- offs over T11 and T12 Skin: No petechia, no purpura. No lesions on the palms or the soles of the feet. No maculopapular rash. NEURO: Patient was alert, awake, orientated x3.No facial droop. Gait observed and normal with no ataxia.Speech had regular rate and rhythm. No focal neurological deficits. Result Diagram: 11/10/18 1757 11/10/18 1757 Results 24 hrs Laboratory Tests Test 11/10/18 17:57 11/10/18 18:13 White Blood Count 8.5 10^3/ul Red Blood Count 4.32 10^6/ul Hemoglobin 12.8 g/dl Hematocrit 39.1 % Mean Corpuscular Volume 90.5 fl Mean Corpuscular Hemoglobin 29.6 pg Mean Corpuscular Hemoglobin Concent 32.7 g/dl Red Cell Distribution Width 14.1 % Platelet Count 186 10^3/UL Mean Platelet Volume 9.8 fl Immature Granulocytes % 0.200 % Neutrophils % 56.8 % Lymphocytes % 20.0 % Monocytes % 9.0 % Eosinophils % 12.5 % Basophils % 1.5 % Nucleated Red Blood Cells % 0.0 /100WBC Immature Granulocytes # 0.020 10^3/ul Neutrophils # 4.8 10^3/ul Lymphocytes # 1.7 10^3/ul Monocytes # 0.8 10^3/ul Eosinophils # 1.1 10^3/ul Basophils # 0.1 10^3/ul Nucleated Red Blood Cells # 0.0 10^3/ul Prothrombin Time 12.8 Sec Prothrombin Time Ratio 1.0 INR International Normalized Ratio 0.95 Activated Partial Thromboplast Time 32.1 Sec Sodium Level 143 mmol/L Potassium Level 4.2 mmol/L Chloride Level 108 mmol/L Carbon Dioxide Level 23 mmol/L Anion Gap 12 Blood Urea Nitrogen 24 mg/dl Creatinine 0.96 mg/dl Est Glomerular Filtrat Rate mL/min mL/min Glucose Level 126 mg/dl Calcium Level 9.2 mg/dl Total Bilirubin 0.5 mg/dl Direct Bilirubin 0.00 mg/dl Indirect Bilirubin 0.5 mg/dl Aspartate Amino Transf (AST/SGOT) 32 IU/L Alanine Aminotransferase (ALT/SGPT) 23 IU/L Alkaline Phosphatase 121 IU/L Troponin I < 0.012 ng/ml Total Protein 7.3 g/dl Albumin 3.6 g/dl Globulin 3.70 g/dl Albumin/Globulin Ratio 0.97 Urine Color YELLOW Urine Clarity CLEAR Urine pH 5.0 Urine Specific [place] 1.024 Urine Ketones NEGATIVE mg/dL Urine Nitrite NEGATIVE mg/dL Urine Bilirubin NEGATIVE mg/dL Urine Urobilinogen 1+ mg/dL Urine Leukocyte Esterase NEGATIVE Lucy/ul Urine Microscopic RBC 1 /HPF Urine Microscopic WBC 3 /HPF Urine Bacteria FEW /HPF Urine Hemoglobin 1+ mg/dL Urine Glucose NEGATIVE mg/dL Urine Total Protein NEGATIVE mg/dl Current Medications Medications Dose Sig/Anna Start Time Status Last (Trade) Ordered Route PRN Stop Time Admin Dose Reason Admin Sodium 500 ml @ Q1H STAT 11/10/18 DC 11/10/18 Chloride 500 mls/hr IV 17:07 17:47 11/10/18 18:06 Morphine 4 mg ONCE STAT 11/10/18 DC Sulfate IV 17:07 (morphine) 11/10/18 18:14 Ondansetron 4 mg ONCE STAT 11/10/18 DC 11/10/18 HCl (Zofran IV 17:07 17:07 Inj) 11/10/18 17:08 Ketorolac 15 mg ONCE STAT 11/10/18 DC 11/10/18 Tromethamine IV 18:13 18:37 (Toradol) 11/10/18 18:14 1 tab ONCE ONCE 11/10/18 DC 11/10/18 Acetaminophen PO 18:30 18:37 / 11/10/18 18:31 Hydrocodone Bitart ([place] (5/325)) Procedures/MDM The patient presented to the emergency department with back pain. My differential diagnosis included but was not limited to spinal origins of the pain such as fracture, osteomyelitis, epidural abscess, neoplasm, spondylolishtesis, discogenic, cauda equina syndrome or musculoligamentous. Nonspinal causes such as AAA, upper UTI, renal colic, aortic dissection, abdominal neoplasm were also considered as an etiology into their pain. I obtained a 12-lead EKG tracing to rule out for atypical myocardial infarction. 12 Lead EKG tracing ordered and reviewed by myself showed: Normal sinus rhythm of 67 bpm and no arrhythmia. MO interval normal. QRS duration normal. No ST segment elevation No ST segment depression. No changes consistent with acute ischemia. Due to the location of the patient's abdominal pain I did feel is necessary to obtain a CT scan of the patient's lumbar spine. The patient did have an acute mild anterior wedging compression fracture of the T11 vertebral body. The patient had multilevel lumbar spondylitic changes that are most pronounced at the L4-L5 and L5-S1. There is no evidence of cauda equina syndrome. The patient remained in the emergency department and received p.o. [place] IV fluids and a small dose of Toradol as the patient was refusing morphine. The patient had no focal neurological deficits and I did feel could be safely discharged with close outpatient follow-up. The patient was now able to ambulate. Observation Note: Time: 5hours Family Hx: No Hypertension Evaluation: Multiple exams showed improving symptoms and no evidence of [] Departure Diagnosis: Primary Impression: Wedge compression fracture of T11 vertebra Condition: MARTY Mendez MD Nov 10, 2018 17:18
[2018-11-10] MEDS ORDERED: KETOROLAC 15 MG INJ IV STA (18:13)
[2018-11-10] MEDS ORDERED: HYDROCODONE/APAP (5/325) TAB PO ONE (18:30)
[2018-11-10] MEDS ORDERED: DOCU-144 PO (21:17)
[2018-11-10] MEDS ORDERED: HYDR-4011 PO (21:17)
[2018-11-10 21:35] VITALS: BP 137/80; PULSE 76; RESP 16
== END 2018-11-10 21:48 | disposition home or self-care (01) ==
LOC: E/R 15:38
DX: S22.080A Wedge compression fracture of T11-T12 vertebra, initial encounter for closed fracture (principal); I11.0 Hypertensive heart disease with heart failure; I50.9 Heart failure, unspecified; I25.10 Atherosclerotic heart disease of native coronary artery without angina pectoris; E11.9 Type 2 diabetes mellitus without complications; W18.39XA Other fall on same level, initial encounter; Y92.9 Unspecified place or not applicable; Z98.61 Coronary angioplasty status; Z79.82 Long term (current) use of aspirin; Z79.84 Long term (current) use of oral hypoglycemic drugs
CPT/HCPCS: 72131; 80053; 81001; 84484; 85025; 85610; 85730; 93005; 96374; 96375; 99285; J1885; J2405; J7040; J2270